=== PATIENT | female | born 1990 | race Hispanic/Latino ===

== ENCOUNTER 2021-03-24 19:27 | Emergency (ER) | payer BC ==
[~2021-03-24] VITALS: Ht 160 cm; Wt 77.1 kg
[2021-03-24] MEDS ORDERED: CASIRIVIMAB/IMDEVIMAB 10 ML in SODIUM CHLORIDE 0.9% 100 ML IV ONE (19:45)
[2021-03-24] MEDS ORDERED: SODIUM CHLORIDE 0.9% 100 ML ONE (19:50)
[2021-03-24 20:11] VITALS: BP 134/87
== END 2021-03-24 20:18 | disposition home or self-care (01) ==
LOC: ER 19:38
DX: R50.9 Fever, unspecified (principal); U07.1 COVID-19; R51.9 Headache, unspecified
CPT/HCPCS: 99283; J7050